=== PATIENT | female | born 1965 | race Caucasian/White ===

== ENCOUNTER → 2017-05-29 | Outpatient (CLI) | payer BC ==
--- NOTE | 2017-05-29 15:37 | MAMMOGRAPHY REPORT ---
ASPIRATION LEFT BREAST: 05/29/2017 CLINICAL HISTORY: Left 1:00 breast mass. PATIENT CONSENT: The procedure and risks of ultrasound-guided biopsy versus aspiration were discussed in full with the patient. Both oral and written consents were obtained. PROCEDURE DESCRIPTION: Preprocedural ultrasound demonstrates persistence of the round circumscribed h ypoechoic mass in the left 1:00 breast. Given that the mass may be cystic, the decision was made to attempt aspiration. With ultrasound guidance, aseptic technique, and 1% lidocaine as a local anesthet ic, the mass of concern in the left 1:00 breast was aspirated to completion using an 18-gauge needle and syringe. Benign type cloudy white fluid was obtained and discarded. Given that the mass complet renea aspirated, biopsy was not performed. Direct pressure was applied to the site immediately post pr ocedure and hemostasis was achieved. The patient tolerated the procedure without complication. COMPARISON: Comparison is made to exams dated: 05/19/2017 ultrasound, 05/19/2017 mammogram, 3 mammogram, 08/17/2012 ultrasound, and 08/12/2012 mammogram - [facility]. IMPRESSION: ASPIRATION Successful ultrasound-guided aspiration of the left 1:00 breast mass. Given that it completely aspir ated, it is consistent with a benign cyst. The aspirated fluid was discarded. Recommend routine zakiya ateral screening mammograms in one year. Luna Dove M.D. /:05/29/2017 13:17:26 Attending Technologist: Shruti Rosado, [facility] Operational Communication Chief: Luna Dove MD, [facility]
== END | disposition home or self-care (01) ==
LOC: C.MAMM 12:52
PROVIDERS: ATTEND Obstetrics & Gynecology
DX: N60.02 Solitary cyst of left breast (principal)

== ENCOUNTER → 2017-05-29 | Outpatient (CLI) | payer BC | END | disposition home or self-care (01) | LOC: C.PAPS 10:18 | PROVIDERS: ATTEND Obstetrics & Gynecology | DX: Z01.419 Encounter for gynecological examination (general) (routine) without abnormal findings (principal) ==